=== PATIENT | male | born 1980 ===

== ENCOUNTER 2022-05-13 14:46 | Emergency (ER) | payer SELFPAY ==
[2022-05-13 15:46] LABS: ANION GAP 15.8 mEq/L (7-13); CHLORIDE,CL 104 mmol/L (98-107); SODIUM,NA 138 mmol/L (136-145)
[2022-05-13 15:54] LABS: ESTIMATED GFR 109 mL/min (>=60)
[2022-05-13 16:03] LABS: PTT,PARTIAL THROMBOPLSTIN TIME 23.3 SEC (22.0-34.0)
[2022-05-13] MEDS: Sodium Chloride 0.9% 1,000 ML IV ONE (16:12)
[2022-05-13] MEDS: Sodium Chloride 0.9% 10 ML Syringe FLUSH PRN (16:12)
[2022-05-13] MEDS: Potassium Chloride 10 MEQ Tab.ER PO ONE (16:44)
== END 2022-05-13 17:10 | disposition home or self-care (01) ==
LOC: DL.ED 14:46
DX: T69.9XXA Effect of reduced temperature, unspecified, initial encounter (principal)
CPT/HCPCS: 36415; 70450; 71250; 72125; 74176; 80053; 80307; 83605; 85025; 85610; 85730; 99284; A9270; J3490; J7030